=== PATIENT | female | born 1945 | race Caucasian/White ===

== ENCOUNTER 2018-01-05 12:08 | Outpatient (CLI) | payer MEDICARE ==
--- NOTE | 2018-01-05 13:44 | RAD ---
RADIOGRAPH CHEST 1 VIEW: Date: 01/05/18 Time: 1216 HOURS HISTORY: 72-year-old female, status post recent change of AICD generator. MRI clearance. COMPARISON: 12/07/15. FINDINGS: The previously demonstrated MRI-unsafe generator has been replaced by an MRI conditional [employer] ge nerator. The previously demonstrated two electrical leads traveling through the left subclavian vein with distal tips overlying the expected locations of the right atrial appendage and right ventricle, remain. A third lead has been added to this, presumably in the coronary sinus, and attached to the ne w generator. Again noted are the sternotomy wires. Again noted is the somewhat severe cardiomegaly. A gain noted are the diffusely prominent interstitial markings. No jenaro pulmonary alveolar edema. Ther e is a new finding of a prominent meniscus effacing the left lateral costophrenic angle. Right latera l costophrenic angle remains sharp. There are also mild streaky densities at the base of the left low er lobe. No pneumothorax. Multiple tiny surgical clips along the left cardiac border. Mild pulmonary vascular prominence. IMPRESSION: 1. Interval replacement of an MRI-unsafe automatic implantable cardioverter-defibrillator generator with an MRI-conditional one, with the addition of a third AICD lead. 2. The patient is cleared for MRI of the abdomen (with the [employer] Anthropological Linguist present to make all of the appropriate adjustments). 3. Cardiomegaly and borderline congestive changes. 4. Status post coronary artery bypass graft surgery is evidence for coronary atherosclerotic disease . 5. New finding of mild streaky pulmonary densities at the left lower lobe: subsegmental atelectasis vs. pneumonia; and probable new small left pleural effusion. LUL [] POS: [facility]
--- NOTE | 2018-01-05 14:20 | MRI ---
MRI ABDOMEN WITHOUT CONTRAST: Date: 01/05/18 HISTORY: Hepatomegaly. FINDINGS: The liver measures 18.0 cm in length and the spleen measures 9.0 cm in length. The hepatic veins are dilated. There is a gallstone. Spleen, pancreas, adrenal glands, and kidneys are grossly unremarkable given the limitation of absence of IV contrast. A small amount of free fluid is seen in the abdomen. The bone marrow signal is normal. There are dependent changes in the lung bases with tiny pleural ef fusions. There is edema in the subcutaneous fat. A tiny cyst is seen in the inferior aspect of the ri ght lobe of the liver. The heart appears enlarged. IMPRESSION: 1. Minimal ascites. 2. Cholelithiasis. 3. Dilated hepatic veins likely due to CHF. POS: [facility]
== END 2018-01-05 12:09 | disposition home or self-care (01) ==
LOC: MRI 12:08
PROVIDERS: ATTEND Internal Medicine Gastroenterology
DX: R16.0 Hepatomegaly, not elsewhere classified (principal); I51.7 Cardiomegaly; K80.20 Calculus of gallbladder without cholecystitis without obstruction; I86.8 Varicose veins of other specified sites
CPT/HCPCS: 71045; 74181; 82565

== ENCOUNTER 2018-03-01 11:37 | Inpatient (IN) | payer MEDICARE ==
[2018-03-01] MEDS ORDERED: DOPamine 400 MG/D5W 250 ML 250 ML IVPB SCH (12:45)
[2018-03-01] MEDS ORDERED: Potassium Chloride 20 MEQ TAB PO SCH (12:45)
[2018-03-01] MEDS ORDERED: DOBUTamine 500 mg/250 ml 500 MG in Premix Bag 1 BAG IVPB SCH ×2 (12:45→14:30)
[2018-03-01 13:31] LABS: ALT (SGPT) 14 U/L (8-55); AST (SGOT) 30 U/L (5-34); Albumin 3.8 g/dL (3.4-4.8); Alkaline Phosphatase 126 U/L (40-150); Anion Gap 25 mmol/L (10-20); BUN (Urea Nitrogen) 76 mg/dL (9.8-20.1); Bilirubin, Total 3.6 mg/dL (0.2-1.2); Calc. Creatinine Clearance 0 mL/min (70-130); Calcium 8.9 mg/dL (7.8-10.44); Carbon Dioxide 19 mmol/L (23-31); Chloride 89 mmol/L (98-107); Estimated GFR-MDRD 19; Globulin 3.9 g/dL (2.4-3.5); Glucose 96 mg/dL (83-110); Protein, Total 7.7 g/dL (6.0-8.3); Sodium 130 mmol/L (136-145)
[2018-03-01 13:42] LABS: Potassium 2.7 mmol/L (3.5-5.1)
[2018-03-01 14:16] LABS: #Lymphocytes 1.2 thou/uL (1.20-3.40); #Monocytes 0.9 thou/uL (0.11-0.59); #Neutrophils 4.8 thou/uL (1.40-6.50); %Basophils 0.2 % (0.0-1.0); %Eosinophils 0.3 % (0.0-10.0); %Lymphocytes 17.4 % (21.0-51.0); %Monocytes 13.1 % (0.0-10.0); Anisocytosis SLIGHT = 6-15 cells (100X) (0-5/hpf); Hemoglobin 12.3 g/dL (12.0-16.0); MDiff Complete? YES; Mean Corpuscular HGB CONC 33.5 g/dL (32.0-36.0); Mean Corpuscular Hemoglobin 30.2 pg (27.0-31.0); Mean Corpuscular Volume 90.2 fl (81.0-99.0); PLT Morphology Comment Appears Adequate; Platelet Count 151 thou/uL (130-400); Polychromasia SLIGHT = 2-3 cells (100X) (0-2/hpf); RBC Distribution Width 19.2 % (11.5-14.5); Red Blood Cell (RBC) Count 4.08 mill/uL (4.20-5.40); Tear Drops SLIGHT = 2-5 cells (100X) (0-1/hpf)
[2018-03-01] MEDS: DOPamine 400 MG/D5W 250 ML 250 ML IVPB SCH (14:40)
--- NOTE | 2018-03-01 14:49 | RAD ---
TWO VIEWS CHEST: HISTORY: Shortness of breath. Heart failure. COMPARISON: 12/07/15. FINDINGS: Cardiomegaly. Evidence of bilateral effusions, larger on the left. Left basilar atelectasis and/or infiltrate. Mild vascular engorgement. Pacemaker/AICD leads are unchanged. Postop sternotomy juarez es again noted. Aortic calcification again noted. IMPRESSION: Cardiomegaly. Small bilateral effusions and left basilar atelectasis and/or infiltrate. POS: [facility]
[2018-03-01] MEDS ORDERED: DOBUTAMINE IN DEXTROSE 5 % 250 MG in Premix Bag 1 BAG IV SCH ×2 (15:00)
[2018-03-01] MEDS: Furosemide 100 MG/10 ML VIAL SLOW IVP SCH (20:35)
[2018-03-01] MEDS: tiZANidine HCl 4 MG TAB PO SCH (20:35)
[2018-03-02 05:43] LABS: Anion Gap 20 mmol/L (10-20); BUN (Urea Nitrogen) 71 mg/dL (9.8-20.1); Calc. Creatinine Clearance 26 mL/min (70-130); Calcium 8.3 mg/dL (7.8-10.44); Carbon Dioxide 21 mmol/L (23-31); Chloride 92 mmol/L (98-107); Estimated GFR-MDRD 22; Glucose 92 mg/dL (83-110); Sodium 130 mmol/L (136-145)
[2018-03-02] MEDS: Levothyroxine Sodium 75 MCG TAB PO SCH (05:48)
[2018-03-02 05:49] LABS: Potassium 2.6 mmol/L (3.5-5.1)
[2018-03-02] MEDS ORDERED: Potassium Chloride 20 MEQ TAB PO SCH (08:00)
[2018-03-02] MEDS: Aspirin 81 mg Enteric Coated Tablet PO SCH (08:55)
[2018-03-02] MEDS: tiZANidine HCl 4 MG TAB PO SCH ×2 (08:56→21:06)
[2018-03-02] MEDS: Enoxaparin Sodium 40 MG/0.4 ML SYRINGE SC SCH (08:56)
[2018-03-02] MEDS: Polyethylene Glycol 3350 17 GM Packet PO SCH (08:56)
[2018-03-02] MEDS: Furosemide 100 MG/10 ML VIAL SLOW IVP SCH ×2 (09:03→21:06)
--- NOTE | 2018-03-02 14:28 | HP ---
HISTORY: Eva Nelson is a 72-year-old white female who was evaluated in August 2005 for exertional dyspnea. She had no chest pain. She underwent catheterization and was found to have severe left ventricular dysfunction with ejection fraction of 20% and 3-vessel coronary artery disease. She underwent CABG x4 with BATEMAN to the LAD, left radial artery to the posterior descending, saphenous vein graft to first obtuse marginal, and saphenous vein graft to the second obtuse marginal. At surgery, she had diffuse pericardial adhesions which precluded identification of any left ventricular scarring. Postoperative course was unremarkable, and she was discharged on postop day #3. In 01/2006, due to continued left ventricular dysfunction, she underwent electrophysiology study and was found to have inducible ventricular tachycardia. She underwent placement of a dual chamber ICD. In 11/2015, she was admitted with acute hypoxic respiratory failure secondary to pneumonia. In 06/2016, she was found to be in atrial tachycardia and was started on Eliquis, underwent transesophageal echo, which revealed [id number] mitral regurgitation, and no thrombus and she underwent electrical cardioversion. She had been on sotalol and ultimately that was stopped due to hypotension. In 2015, she underwent AV node ablation and upgrade to a biventricular ICD at [facility] in [place]. Also, I believe the atrial lead was changed. In 01/2017, she had iron deficiency anemia, underwent an EGD and colonoscopy. She was found to have gastric body gastritis, diverticulosis, and mild colitis. She has continued to be followed in the office. Over the last several months, she has developed problems with increasing edema and shortness of breath. She was changed to torsemide and since the last time she was seen, is up 7 pounds. At home, her systolics have been less than 100 despite the reduction in dose of the carvedilol. With continued increased dyspnea, OptiVol on her ICD at a level higher than could be measured and increasing creatinine, it was recommended she be admitted for more aggressive treatment of her heart failure with intravenous dobutamine and dopamine and intravenous diuretics. She agrees to proceed. She has not had any chest discomfort. PAST MEDICAL HISTORY: Hypertension, hypercholesterolemia, history of gastrointestinal bleeding, former smoker, GERD, hypothyroidism. OPERATIONS: Tonsillectomy, CABG, AICD placement, upgrade to biventricular AICD , D and C. MEDICATIONS: Alprazolam 0.25 mg b.i.d., Synthroid 75 mcg daily, CoQ10 100 mg daily, metolazone 5 mg p.r.n., MiraLax daily, aspirin 81 daily, potassium 10 mEq b.i.d., carvedilol 3.125 one-half tablet b.i.d., torsemide 100 mg 1 q.a.m. and 1/2 q.p.m. ALLERGIES: PENICILLIN. SOCIAL HISTORY: She smoked in the past. She does not drink. FAMILY HISTORY: Positive for coronary artery disease. REVIEW OF SYSTEMS: Twelve-point review of systems is otherwise unremarkable. PHYSICAL EXAMINATION: VITAL SIGNS: Blood pressure 116/63 and pulse is 70. HEENT: PERRL. NECK: Supple. CHEST: Clear. CARDIAC EXAMINATION: S1 and S2 normal, without any S3, S4, or murmurs. ABDOMEN: Normal bowel sounds, without tenderness or organomegaly. EXTREMITIES: Revealed 2-3+ edema to the knee. NEUROLOGIC: Grossly intact. SKIN: Warm and dry. LABORATORY DATA: Echocardiogram on 12/29/2017 in the office revealed severe left ventricular dysfunction with ejection fraction of 20%-25%, severe right ventricular dilatation, ICD wire in the right ventricle, moderate left atrial enlargement, severe right atrial enlargement, [id number] mitral regurgitation, mitral annular calcification, severe tricuspid regurgitation, aortic valvular sclerosis, and mild pulmonic insufficiency. Hemoglobin 12.3, hematocrit 36.8, white count 7000, platelets 151,000. Sodium 130, potassium 2.7 , chloride 89, BUN 76, creatinine 2.49. One month ago, her creatinine was 1.32. BNP 6827.3. IMPRESSION: 1. Severe acute on chronic systolic heart failure. 2. Ischemic cardiomyopathy. 3. Status post coronary artery bypass graft x4. 4. Biventricular implantable cardioverter defibrillator. 5. History of atrial tachycardia and atrial arrhythmias with history of AV node ablation. 6. Hypertension. 7. Hyperlipidemia. 8. Former smoker. 9. Hypothyroidism. PLAN: The patient will be admitted and will be started on intravenous dopamine and dobutamine and intravenous diuretics. Potassium will be replaced. Certainly, her long-term prognosis is poor. Her ICD will also be interrogated. She has a very wide paced QRS pattern and attempts will be made to try to narrow this. [facility]
[2018-03-03] MEDS: Levothyroxine Sodium 75 MCG TAB PO SCH (06:05)
[2018-03-03] MEDS: DOPamine 400 MG/D5W 250 ML 250 ML IVPB SCH ×2 (06:08→09:16)
[2018-03-03 06:10] LABS: Anion Gap 14 mmol/L (10-20); BUN (Urea Nitrogen) 71 mg/dL (9.8-20.1); Calc. Creatinine Clearance 25 mL/min (70-130); Calcium 8.6 mg/dL (7.8-10.44); Carbon Dioxide 30 mmol/L (23-31); Chloride 91 mmol/L (98-107); Estimated GFR-MDRD 20; Glucose 111 mg/dL (83-110); Sodium 132 mmol/L (136-145)
[2018-03-03 06:19] LABS: Potassium 2.7 mmol/L (3.5-5.1)
[2018-03-03] MEDS ORDERED: DOBUTamine 500 mg/250 ml 500 MG in Premix Bag 1 BAG IVPB SCH (08:18)
[2018-03-03] MEDS ORDERED: Potassium Chloride 20 MEQ TAB PO SCH ×2 (08:30→17:00)
[2018-03-03] MEDS: Polyethylene Glycol 3350 17 GM Packet PO SCH (09:05)
[2018-03-03] MEDS: Furosemide 100 MG/10 ML VIAL SLOW IVP SCH ×2 (09:06→21:24)
[2018-03-03] MEDS: Aspirin 81 mg Enteric Coated Tablet PO SCH (09:06)
[2018-03-03] MEDS: tiZANidine HCl 4 MG TAB PO SCH ×2 (09:06→21:25)
[2018-03-03] MEDS: Enoxaparin Sodium 40 MG/0.4 ML SYRINGE SC SCH (09:06)
[2018-03-03] MEDS ORDERED: Spironolactone 25 MG TAB PO SCH (11:00)
[2018-03-03] MEDS: SODIUM CHLORIDE 0.9% IVPB SCH (20:52)
[2018-03-03] MEDS: DOBUTAMINE IVPB SCH (20:52)
[2018-03-03] MEDS: Acetaminophen 325 MG TAB PO PRN (21:25)
[2018-03-04] MEDS: DOPamine 400 MG/D5W 250 ML 250 ML IVPB SCH ×2 (02:51→21:18)
[2018-03-04] MEDS: Levothyroxine Sodium 75 MCG TAB PO SCH (05:57)
[2018-03-04 06:51] LABS: Anion Gap 21 mmol/L (10-20); BUN (Urea Nitrogen) 69 mg/dL (9.8-20.1); Calc. Creatinine Clearance 25 mL/min (70-130); Calcium 8.7 mg/dL (7.8-10.44); Carbon Dioxide 18 mmol/L (23-31); Chloride 96 mmol/L (98-107); Estimated GFR-MDRD 21; Glucose 108 mg/dL (83-110); Potassium 5.1 mmol/L (3.5-5.1); Sodium 130 mmol/L (136-145)
[2018-03-04] MEDS ORDERED: Metolazone 5 MG TAB PO SCH (07:30)
[2018-03-04] MEDS: Aspirin 81 mg Enteric Coated Tablet PO SCH (07:55)
[2018-03-04] MEDS: Enoxaparin Sodium 30 MG/0.3 ML SYRINGE SC SCH (07:55)
[2018-03-04] MEDS: tiZANidine HCl 4 MG TAB PO SCH ×2 (07:56→21:19)
[2018-03-04] MEDS: Polyethylene Glycol 3350 17 GM Packet PO SCH (07:56)
[2018-03-04] MEDS: Spironolactone 25 MG TAB PO SCH (07:57)
[2018-03-04] MEDS: Furosemide 100 MG/10 ML VIAL SLOW IVP SCH ×2 (07:58→21:24)
[2018-03-04 13:57] VITALS: BMI 27.2
[2018-03-04] MEDS: Acetaminophen 325 MG TAB PO PRN ×2 (15:36→21:19)
[2018-03-04] MEDS ORDERED: diphenhydrAMINE 25 MG CAP PO SCH (21:00)
[2018-03-04] MEDS: SODIUM CHLORIDE 0.9% IVPB SCH (21:18)
[2018-03-04] MEDS: DOBUTAMINE IVPB SCH (21:18)
[2018-03-05] MEDS: ALPRAZolam 0.25 MG TAB PO PRN ×2 (03:15→15:16)
[2018-03-05] MEDS: Levothyroxine Sodium 75 MCG TAB PO SCH (05:21)
[2018-03-05 05:26] LABS: Anion Gap 16 mmol/L (10-20); BUN (Urea Nitrogen) 72 mg/dL (9.8-20.1); Calc. Creatinine Clearance 25 mL/min (70-130); Calcium 8.2 mg/dL (7.8-10.44); Carbon Dioxide 24 mmol/L (23-31); Chloride 93 mmol/L (98-107); Estimated GFR-MDRD 21; Glucose 96 mg/dL (83-110); Potassium 4.2 mmol/L (3.5-5.1); Sodium 129 mmol/L (136-145)
[2018-03-05] MEDS ORDERED: Metolazone 5 MG TAB PO SCH (08:15)
[2018-03-05] MEDS: Furosemide 100 MG/10 ML VIAL SLOW IVP SCH ×2 (08:27→21:18)
[2018-03-05] MEDS: tiZANidine HCl 4 MG TAB PO SCH ×2 (08:27→21:18)
[2018-03-05] MEDS: Spironolactone 25 MG TAB PO SCH (08:27)
[2018-03-05] MEDS: Enoxaparin Sodium 30 MG/0.3 ML SYRINGE SC SCH (08:28)
[2018-03-05] MEDS: Aspirin 81 mg Enteric Coated Tablet PO SCH (08:28)
[2018-03-05] MEDS: Polyethylene Glycol 3350 17 GM Packet PO SCH (08:29)
[2018-03-05] MEDS: DOPamine 400 MG/D5W 250 ML 250 ML IVPB SCH (16:06)
[2018-03-05] MEDS: Acetaminophen 325 MG TAB PO PRN (21:18)
[2018-03-05] MEDS: SODIUM CHLORIDE 0.9% IVPB SCH (23:05)
[2018-03-05] MEDS: DOBUTAMINE IVPB SCH (23:05)
[2018-03-06] MEDS: ALPRAZolam 0.25 MG TAB PO PRN ×2 (02:48→15:46)
[2018-03-06] MEDS: Levothyroxine Sodium 75 MCG TAB PO SCH (05:23)
[2018-03-06 05:38] LABS: Anion Gap 15 mmol/L (10-20); BUN (Urea Nitrogen) 77 mg/dL (9.8-20.1); Calc. Creatinine Clearance 24 mL/min (70-130); Calcium 8.6 mg/dL (7.8-10.44); Carbon Dioxide 30 mmol/L (23-31); Chloride 90 mmol/L (98-107); Estimated GFR-MDRD 20; Glucose 105 mg/dL (83-110); Potassium 3.6 mmol/L (3.5-5.1); Sodium 131 mmol/L (136-145)
[2018-03-06] MEDS: Enoxaparin Sodium 30 MG/0.3 ML SYRINGE SC SCH (09:15)
[2018-03-06] MEDS: Aspirin 81 mg Enteric Coated Tablet PO SCH (09:15)
[2018-03-06] MEDS: Spironolactone 25 MG TAB PO SCH (09:15)
[2018-03-06] MEDS: Polyethylene Glycol 3350 17 GM Packet PO SCH (09:16)
[2018-03-06] MEDS: Furosemide 100 MG/10 ML VIAL SLOW IVP SCH ×2 (09:16→20:26)
[2018-03-06] MEDS: tiZANidine HCl 4 MG TAB PO SCH ×2 (09:17→20:26)
[2018-03-06] MEDS: DOPamine 400 MG/D5W 250 ML 250 ML IVPB SCH (09:18)
--- NOTE | 2018-03-06 15:08 | PDOC.CTH ---
<Charley Adair - Last Filed: 03/06/18 15:05> Cardiology Progress Note - Subjective The pt seen and examined. No overnight events. No cardiac complaints. She complains of Lt nasal bleeding. She stated she will be tx to [place] for LVAD placement; however, due to enlarged liver, she might not be a good candidate. - Objective Vital Signs Temp Pulse Resp BP Pulse Ox 03/06/18 12:20 98.9 F 72 16 106/61 94 L 03/06/18 08:00 98.4 F 72 20 102/62 95 03/06/18 07:25 98.4 F 72 20 95 03/06/18 04:00 98.5 F 80 20 108/57 L 95 Admit Weight 158 lb 6.4 oz Weight 162 lb 03/05/18 03/06/18 03/07/18 06:59 06:59 06:59 Intake Total 1465 1798 Output Total 650 1425 Balance 815 373 - Physical Examination General/Neuro: alert & oriented x3 Neck: no JVD present Lungs: CTA (dinimished at bases) Heart: RRR Extremities: other: (No edema) - Telemetry Telemetry Rhythm: V paced 70s - Labs Result Diagrams: 03/01/18 13:00 03/06/18 05:13 - Assessment/Plan 1. Severe Acute on Chronic systolic HF - On Dobutamine and Dopamine 5mcg/kg/min ; VS is stable; Plan to Tx to [place] for possible LVAD placement. 2. Ischemic CMY with hx of BiV AICD placement - On Lasix 80mg IV BID and Spironolacotone 25mg daily; cont. to monitor 3. CAD with hx of CABG x4 in 2004 - stable with ASA 81mg daily; not on BBlocker or VERONIKA due to hypotensive and CKD. 4. HTN - stable 5. CKD - stable; possible renal consult? 6. Hypothyroidism - On thyroid medication 7. Hx of GI bleeding - check CBC tomorrow AM 8. Nosal bleeding - Holding Lovenox at this moment MAR reviewed Review of Systems - Review of Systems Constitutional: reports: weakness EENTM: reports: see HPI Respiratory: reports: no symptoms reported Cardiac (ROS): reports: no symptoms reported ABD/GI: reports: no symptoms reported : reports: no symptoms reported Musculoskeletal: reports: no symptoms reported Skin: reports: no symptoms reported <Chele Madsen - Last Filed: 03/07/18 00:15> Cardiology Progress Note - Objective Vital Signs Temp Pulse Resp BP Pulse Ox 03/06/18 20:00 98.9 F 70 20 92/59 L 95 03/06/18 16:54 98.9 F 75 17 106/59 L 93 L 03/06/18 12:20 98.9 F 72 16 106/61 94 L Admit Weight 158 lb 6.4 oz Weight 162 lb 03/05/18 03/06/18 03/07/18 06:59 06:59 06:59 Intake Total 1465 1798 600 Output Total 650 1425 1000 Balance 815 373 -400 - Labs Result Diagrams: 03/01/18 13:00 03/06/18 05:13 - Assessment/Plan Pt. seen and eval. by me. I agree with the A/P by the VIBRATING SCREEN OPERATOR. We discussed the pt. and plan.
--- NOTE | 2018-03-06 16:45 | PDOC.PN ---
- Subjective Encounter Start Date: 03/06/18 Encounter Start Time: 16:43 Pt seen for management of medical comorbidities, including hyponatremia. Denies chest pain, shas SOBOE, orthopnea. No fevers or chills. - Objective MAR Reviewed: Yes Vital Signs & Weight: Vital Signs (12 hours) Temp Pulse Resp BP Pulse Ox 03/06/18 12:20 98.9 F 72 16 106/61 94 L 03/06/18 08:00 98.4 F 72 20 102/62 95 03/06/18 07:25 98.4 F 72 20 95 Weight Admit Weight 158 lb 6.4 oz Weight 162 lb I&O: 03/05/18 03/06/18 03/07/18 06:59 06:59 06:59 Intake Total 1465 1798 Output Total 650 1425 Balance 815 373 Result Diagrams: 03/01/18 13:00 03/06/18 05:13 EKG Reviewed by me: Yes (Tele: electronic V-paced) Phys Exam - Physical Examination Constitutional: NAD HEENT: PERRLA, moist MMs, sclera anicteric, oral pharynx no lesions Neck: no nodes, supple, full ROM JVD Respiratory: no wheezing, no rhonchi Lukasz crackles Cardiovascular: RRR, no rub Gastrointestinal: soft, non-tender, positive bowel sounds distention Musculoskeletal: edema present Neurological: moves all 4 limbs Psychiatric: normal affect, A&O x 3 Dx/Plan (1) Hyponatremia Code(s): E87.1 - HYPO-OSMOLALITY AND HYPONATREMIA Status: Acute Comment: Appears to be asymptomatic. Monitor lytes. (2) CKD (chronic kidney disease) Code(s): N18.9 - CHRONIC KIDNEY DISEASE, UNSPECIFIED Status: Chronic Comment : GFR worse during this admission. Etiology unclear, ? due to CHF, ? ATN due to hypotension. Consult nephrology for further guidance. Pt is on dopamine and dobutamine drips. (3) Hypothyroidism Code(s): E03.9 - HYPOTHYROIDISM, UNSPECIFIED Status: Chronic Comment: continue synthroid (4) H/O: GI bleed Code(s): Z87.19 - PERSONAL HISTORY OF OTHER DISEASES OF THE DIGESTIVE SYSTEM Status: Chronic Comment: no recurrence (5) Epistaxis Code(s): R04.0 - EPISTAXIS Status: Resolved Comment: Pt is off of Lovenox (6) HTN (hypertension) Code(s): I10 - ESSENTIAL (PRIMARY) HYPERTENSION Status: Acute (7) CAD (coronary artery disease) Code(s): I25.10 - ATHSCL HEART DISEASE OF [place] CORONARY ARTERY W/O ANG PCTRS Status: Chronic - Plan * . Prognosis poor. Discussed code status. Pt is Full code. SDM is her . Review of Systems - Review of Systems Constitutional: negative: fever, chills, sweats, weakness, malaise Respiratory: Shortness of Breath, SOB with Excertion. negative: Cough, Dry, Hemoptysis, Pleuritic Pain, Sputum, Wheezing Cardiovascular: negative: chest pain, palpitations, orthopnea, paroxysmal nocturnal dyspnea, edema, light headedness - Medications/Allergies Allergies/Adverse Reactions: Allergies Allergy/AdvReac Type Severity Reaction Status Date / Time Penicillins Allergy Verified 03/01/18 12:59 Medications: Current Medications Acetaminophen (Tylenol) 650 mg PO Q4H PRN PRN Reason: Pain Last Admin: 03/05/18 21:18 Dose: 650 mg Alprazolam (Xanax) 0.25 mg PO BIDPRN PRN PRN Reason: Anxiety Last Admin: 03/06/18 15:46 Dose: 0.25 mg Aspirin (Ecotrin) 81 mg PO DAILY [facility] Last Admin: 03/06/18 09:15 Dose: 81 mg Enoxaparin Sodium (Lovenox) 30 mg SC 0900 [facility] Last Admin: 03/06/18 09:15 Dose: 30 mg Furosemide (Lasix) 80 mg SLOW IVP BID [facility] Last Admin: 03/06/18 09:16 Dose: 80 mg Dopamine HCl/Dextrose (Dopamine/D5w) 250 mls @ 13.472 mls/hr IVPB INF [facility]; 5 MCG/KG/MIN PRN Reason: Protocol Last Admin: 03/06/18 09:18 Dose: 250 mls Dobutamine HCl 500 mg/ Sodium (Chloride) 290 mls @ 12.5 mls/hr IVPB INF [facility] PRN Reason: 5 MCG/KG/MIN Last Admin: 03/05/18 23:05 Dose: 290 mls Levothyroxine Sodium (Synthroid) 75 mcg PO 0600 [facility] Last Admin: 03/06/18 05:23 Dose: 75 mcg Polyethylene Glycol (Miralax) 17 gm PO DAILY [facility] Last Admin: 03/06/18 09:16 Dose: Not Given Sodium Chloride (Flush - Normal Saline) 10 ml IVF Q12HR [facility] Last Admin: 03/06/18 09:16 Dose: 10 ml Sodium Chloride (Flush - Normal Saline) 10 ml IVF PRN PRN PRN Reason: Saline Flush Last Admin: 03/04/18 07:58 Dose: 10 ml Spironolactone (Aldactone) 25 mg PO QAM-WM [facility] Last Admin: 03/06/18 09:15 Dose: 25 mg Tizanidine HCl (Zanaflex) 4 mg PO BID [facility] Last Admin: 03/06/18 09:17 Dose: 4 mg
[2018-03-06] MEDS: Acetaminophen 325 MG TAB PO PRN (21:02)
--- NOTE | 2018-03-07 01:05 | CON ---
DATE OF CONSULTATION: 03/06/2018 NEPHROLOGY CONSULT CONSULTING PHYSICIAN: Dr. Andrade. REASON FOR CONSULTATION: Acute kidney injury on chronic kidney disease, stage 4. REASON FOR ADMISSION: Shortness of breath. HISTORY OF PRESENT ILLNESS: This is a 72-year-old female with history of CHF, hypertension, hyperlip idemia, former smoker, CKD, came to the hospital with shortness of breath and she evaluated and being treated for congestive heart failure. Patient probably being transferred to [place] next week for po ssible LVAD procedure or placement. Patient is mildly short of breath this morning. No chest pain, no nausea, vomiting, no fever or chills. No skin rash reported. Nephrology is consulted for chronic kidney disease. Patient was found to have elevated creatinine. Her creatinine on admission was 2.4 9, but last creatinine was almost a year back was 1.32. Most likely she does have chronic kidney sta ge 4, most likely from cardiorenal syndrome. PAST MEDICAL HISTORY: Positive for hypertension, hyperlipidemia, GI bleed, former smoker, GERD, CKD, hypothyroidism. PAST SURGICAL HISTORY: Tonsillectomy, CABG, AICD placement. HOME MEDICATIONS: Include alprazolam, Synthroid, Coenzyme Q10, metolazone, MiraLax, potassium, carve dilol, torsemide. ALLERGIES: PENICILLIN. SOCIAL HISTORY: She smoked in the past. No alcohol, illicit drug abuse. FAMILY HISTORY: Positive for heart disease. REVIEW OF SYSTEMS: The following complete review of systems was negative, unless otherwise mentioned in the HPI or below: Constitutional: Weight loss or gain, ability to conduct usual activities. Sk in: Rash, itching. Eyes: Double vision, pain. ENT/Mouth: Nose bleeding, neck stiffness, pain, te nderness. Cardiovascular: Palpitations, dyspnea on exertion, orthopnea. Respiratory: Shortness of breath, wheezing, cough, hemoptysis, fever, or night sweats. Gastrointestinal: Poor appetite, abdo david pain, heartburn, nausea, vomiting, constipation, or diarrhea. Genitourinary: Urgency, frequen cy, dysuria, nocturia. Musculoskeletal: Pain, swelling. Neurologic/Psychiatric: Anxiety, depressi on. Allergy/Immunologic: Skin rash, bleeding tendency. PHYSICAL EXAMINATION: GENERAL: This is a well-built elderly female in no apparent distress. VITAL SIGNS: Temperature 98.9, pulse 75, respirations 21, blood pressure 106/59. HEENT: Atraumatic, normocephalic. Oral mucosa is moist. NECK: Supple. HEART: S1, S2 heard. Rate and rhythm regular. RESPIRATORY: Clear. GI: Abdomen is soft. EXTREMITIES: 2+ edema. DERMATOLOGIC: No skin rash. NEUROLOGIC: Alert, awake. PSYCHIATRIC: Mood and affect normal. LABORATORY DATA: Potassium is 3.6, BUN is 77, creatinine is 2.4. Hemoglobin is 12.2. ASSESSMENT AND PLAN: 1. Acute kidney injury on chronic kidney stage 4, most likely from cardiorenal syndrome. Agree with current management. Follow with Cardiology. Avoid nephrotoxins. We will recommend to hold VERONIKA inh ibitor if tolerated. Continue on dobutamine and on Lasix also. Currently with spironolactone. 2. Continue close monitor of electrolytes and renal function. 3. Hypokalemia, replace. 4. Hyponatremia, most likely from fluid overload, limit fluid intake. 5. Hypertension, mostly stable. 6. Elevated BNP with fluid overload. 7. Edema. Plan is to monitor renal function closely. Thank you for the consult. Avoid nephrotoxins. We will follow.
[2018-03-07] MEDS: ALPRAZolam 0.25 MG TAB PO PRN ×2 (04:01→15:16)
[2018-03-07] MEDS: DOPamine 400 MG/D5W 250 ML 250 ML IVPB SCH (04:24)
[2018-03-07] MEDS: DOBUTAMINE IVPB SCH (04:35)
[2018-03-07] MEDS: SODIUM CHLORIDE 0.9% IVPB SCH (04:35)
[2018-03-07 05:16] LABS: ALT (SGPT) 12 U/L (8-55); AST (SGOT) 17 U/L (5-34); Albumin 3.1 g/dL (3.4-4.8); Alkaline Phosphatase 112 U/L (40-150); Anion Gap 14 mmol/L (10-20); BUN (Urea Nitrogen) 74 mg/dL (9.8-20.1); Bilirubin, Total 2.6 mg/dL (0.2-1.2); Calc. Creatinine Clearance 27 mL/min (70-130); Calcium 8.8 mg/dL (7.8-10.44); Carbon Dioxide 31 mmol/L (23-31); Chloride 89 mmol/L (98-107); Estimated GFR-MDRD 22; Globulin 3.4 g/dL (2.4-3.5); Glucose 100 mg/dL (83-110); Potassium 3.6 mmol/L (3.5-5.1); Protein, Total 6.5 g/dL (6.0-8.3); Sodium 130 mmol/L (136-145)
[2018-03-07 05:44] LABS: #Eosinphils 0.2 thou/uL (0.0-0.7); #Lymphocytes 0.7 thou/uL (1.20-3.40); #Monocytes 1.1 thou/uL (0.11-0.59); #Neutrophils 5.8 thou/uL (1.40-6.50); %Basophils 0.2 % (0.0-1.0); %Eosinophils 2.1 % (0.0-10.0); %Lymphocytes 8.9 % (21.0-51.0); %Monocytes 14.1 % (0.0-10.0); %Neutrophils 74.6 % (42.0-75.0); Bite Cells SLIGHT = 2-5 cells (100X) (0-1/hpf); MDiff Complete? YES; Mean Corpuscular HGB CONC 32.9 g/dL (32.0-36.0); Mean Corpuscular Hemoglobin 29.7 pg (27.0-31.0); Mean Corpuscular Volume 90.3 fl (81.0-99.0); Mean Platelet Volume 10.2 fL (7.4-10.4); PLT Morphology Comment Appears Decreased; Platelet Count 119 thou/uL (130-400); RBC Distribution Width 18.9 % (11.5-14.5); White Blood Cell (WBC) Count 7.8 thou/uL (4.8-10.8)
[2018-03-07] MEDS: Furosemide 100 MG/10 ML VIAL SLOW IVP SCH ×2 (06:28→14:24)
[2018-03-07] MEDS: Levothyroxine Sodium 75 MCG TAB PO SCH (06:28)
[2018-03-07] MEDS: Spironolactone 25 MG TAB PO SCH (08:36)
[2018-03-07] MEDS: tiZANidine HCl 4 MG TAB PO SCH ×2 (08:36→20:35)
[2018-03-07] MEDS: Polyethylene Glycol 3350 17 GM Packet PO SCH ×2 (08:36→20:36)
[2018-03-07] MEDS: Aspirin 81 mg Enteric Coated Tablet PO SCH (08:36)
[2018-03-07] MEDS: Enoxaparin Sodium 30 MG/0.3 ML SYRINGE SC SCH (08:42)
--- NOTE | 2018-03-07 12:48 | PDOC.PN ---
- Subjective Encounter Start Date: 03/07/18 Encounter Start Time: 08:00 Pt seen for followup re: hyponatremia. Denies chest pain. Feels sleepy. No fevers or chills. No nausea or vomiting. - Objective MAR Reviewed: Yes Vital Signs & Weight: Vital Signs (12 hours) Temp Pulse Resp BP Pulse Ox 03/07/18 11:48 98.2 F 69 18 104/59 L 92 L 03/07/18 07:01 98.2 F 72 16 105/60 97 03/07/18 04:00 97.8 F 73 15 90/60 95 Weight Admit Weight 158 lb 6.4 oz Weight 167 lb 9.6 oz I&O: 03/06/18 03/07/18 03/08/18 06:59 06:59 06:59 Intake Total 1798 1539 Output Total 1425 2600 Balance 373 -1061 Result Diagrams: 03/07/18 04:49 03/07/18 04:49 EKG Reviewed by me: Yes (Tele: electronic V-paced) Phys Exam - Physical Examination Constitutional: NAD HEENT: moist MMs Neck: supple Respiratory: clear to auscultation bilateral Cardiovascular: RRR Gastrointestinal: soft Musculoskeletal: edema present Neurological: moves all 4 limbs Psychiatric: normal affect Dx/Plan (1) Hyponatremia Code(s): E87.1 - HYPO-OSMOLALITY AND HYPONATREMIA Status: Acute Comment: Stable (2) CKD (chronic kidney disease) Code(s): N18.9 - CHRONIC KIDNEY DISEASE, UNSPECIFIED Status: Chronic Comment : Appreciate nephrology service input, creatinine better today. (3) Hypothyroidism Code(s): E03.9 - HYPOTHYROIDISM, UNSPECIFIED Status: Chronic Comment: continue synthroid (4) H/O: GI bleed Code(s): Z87.19 - PERSONAL HISTORY OF OTHER DISEASES OF THE DIGESTIVE SYSTEM Status: Chronic Comment: pt denies recurrence (5) Epistaxis Code(s): R04.0 - EPISTAXIS Status: Resolved Comment: no Lovenox at this time (6) HTN (hypertension) Code(s): I10 - ESSENTIAL (PRIMARY) HYPERTENSION Status: Acute (7) CAD (coronary artery disease) Code(s): I25.10 - ATHSCL HEART DISEASE OF [place] CORONARY ARTERY W/O ANG PCTRS Status: Chronic - Plan * . Review of Systems - Review of Systems Constitutional: weakness. negative: fever, chills, sweats, malaise Respiratory: Shortness of Breath, SOB with Excertion. negative: Cough, Dry, Hemoptysis, Pleuritic Pain, Sputum, Wheezing Cardiovascular: orthopnea. negative: chest pain, palpitations, paroxysmal nocturnal dyspnea, edema, light headedness - Medications/Allergies Allergies/Adverse Reactions: Allergies Allergy/AdvReac Type Severity Reaction Status Date / Time Penicillins Allergy Verified 03/01/18 12:59 Medications: Current Medications Acetaminophen (Tylenol) 650 mg PO Q4H PRN PRN Reason: Pain Last Admin: 03/06/18 21:02 Dose: 650 mg Alprazolam (Xanax) 0.25 mg PO BIDPRN PRN PRN Reason: Anxiety Last Admin: 03/07/18 04:01 Dose: 0.25 mg Aspirin (Ecotrin) 81 mg PO DAILY [facility] Last Admin: 03/07/18 08:36 Dose: 81 mg Enoxaparin Sodium (Lovenox) 30 mg SC 0900 [facility] Last Admin: 03/07/18 08:42 Dose: Not Given Furosemide (Lasix) 80 mg SLOW IVP 0600,1400 [facility] Last Admin: 03/07/18 06:28 Dose: 80 mg Dopamine HCl/Dextrose (Dopamine/D5w) 250 mls @ 13.472 mls/hr IVPB INF [facility]; 5 MCG/KG/MIN PRN Reason: Protocol Last Admin: 03/07/18 04:24 Dose: 250 mls Dobutamine HCl 500 mg/ Sodium (Chloride) 290 mls @ 12.5 mls/hr IVPB INF [facility] PRN Reason: 5 MCG/KG/MIN Last Admin: 03/07/18 04:35 Dose: 290 mls Levothyroxine Sodium (Synthroid) 75 mcg PO 0600 [facility] Last Admin: 03/07/18 06:28 Dose: 75 mcg Polyethylene Glycol (Miralax) 17 gm PO DAILY [facility] Last Admin: 03/07/18 08:36 Dose: Not Given Sodium Chloride (Flush - Normal Saline) 10 ml IVF Q12HR [facility] Last Admin: 03/07/18 08:43 Dose: Not Given Sodium Chloride (Flush - Normal Saline) 10 ml IVF PRN PRN PRN Reason: Saline Flush Last Admin: 03/07/18 06:28 Dose: 10 ml Spironolactone (Aldactone) 25 mg PO QAM[facility] Last Admin: 03/07/18 08:36 Dose: 25 mg Tizanidine HCl (Zanaflex) 4 mg PO BID [facility] Last Admin: 03/07/18 08:36 Dose: 4 mg
--- NOTE | 2018-03-07 15:03 | PRG ---
DATE OF SERVICE: 03/07/2018 SUBJECTIVE: Patient was seen and examined at bedside and overnight events noted. Patient denies any shortness of breath or chest pain or palpitation. No history of nausea or vomiting or diarrhea or f ever or chills or cramps. OBJECTIVE: GENERAL: This is an elderly female in no apparent distress. VITAL SIGNS: Temperature is 98.2, pulse 70, respiratory rate 16 and blood pressure 105/60. HEENT: Atraumatic, normocephalic. Oral mucosa is moist. NECK: Supple. CARDIOVASCULAR: S1, S2 heard. Rate and rhythm regular. RESPIRATORY: Clear to auscultation. GASTROINTESTINAL: Abdomen is soft. MUSCULOSKELETAL: No tenderness. No edema. DERMATOLOGIC: No skin rash. NEUROLOGIC: Alert and awake and oriented x3. No focal neurologic deficits. Moving all the extremit ies. PSYCHIATRIC: Mood and affect normal. LABORATORY DATA: Potassium is 3.6, BUN is 74 and creatinine is 2.1. ASSESSMENT AND PLAN: 1. Acute kidney injury, chronic kidney disease stage 4 with fluctuations in creatinine labs. 2. Cardiorenal syndrome. It seems like slightly improved on her creatinine. Continue on inotropes and diuretics. Follow up with Cardiology for further plan. 3. Hypokalemia, replace. 4. Hyponatremia, limit fluid intake. 5. Edema. Overall, renal function is stable. Hold VERONIKA inhibitors. At this point okay with diuretics and inotr opes. We will follow.
--- NOTE | 2018-03-07 17:48 | PDOC.CTH ---
<Charley Adair - Last Filed: 03/07/18 17:47> Cardiology Progress Note - Subjective The pt seen and examined. No overnight events. No cardiac complaints. She complains of coldness and needs the room very warm. She would like to know the schedule of tx to [facility] on 03/08/18. No more nasal bleeding. - Objective Vital Signs Temp Pulse Resp BP Pulse Ox 03/07/18 15:18 98 F 76 18 103/60 96 03/07/18 11:48 98.2 F 69 18 104/59 L 92 L 03/07/18 07:01 98.2 F 72 16 105/60 97 Admit Weight 158 lb 6.4 oz Weight 167 lb 9.6 oz 03/06/18 03/07/18 03/08/18 06:59 06:59 06:59 Intake Total 1798 1539 Output Total 1425 2600 Balance 373 -1061 - Physical Examination General/Neuro: alert & oriented x3 Neck: no JVD present Lungs: CTA (diminished at bases) Heart: RRR Abdomen: soft Extremities: other: (2+ pitting edemas) - Telemetry Telemetry Rhythm: V paced - Labs Result Diagrams: 03/07/18 04:49 03/07/18 04:49 - Assessment/Plan 1. Severe Acute on Chronic systolic HF - On Dobutamine and Dopamine 5mcg/kg/min ; VS is stable; Plan to Tx to [facility] for possible LVAD placement. 2. Ischemic CMY with hx of BiV AICD placement - On Lasix 80mg IV BID and Spironolacotone 25mg daily; cont. to monitor 3. CAD with hx of CABG x4 in 2004 - stable with ASA 81mg daily; not on BBlocker or VERONIKA due to hypotensive and CKD. 4. HTN - stable 5. RUBY on CKD stage 4 - managed by clinical laboratory technologist 6. Hypothyroidism - On thyroid medication 7. Hx of GI bleeding - check CBC tomorrow AM 8. Nosal bleeding - Holding Lovenox at this moment MAR reviewed Review of Systems - Review of Systems Constitutional: reports: see HPI EENTM: reports: no symptoms reported Respiratory: reports: no symptoms reported Cardiac (ROS): reports: no symptoms reported ABD/GI: reports: no symptoms reported : reports: no symptoms reported Musculoskeletal: reports: no symptoms reported <Chele Madsen - Last Filed: 03/07/18 19:31> Cardiology Progress Note - Objective Vital Signs Temp Pulse Resp BP Pulse Ox 03/07/18 15:18 98 F 76 18 103/60 96 03/07/18 11:48 98.2 F 69 18 104/59 L 92 L Admit Weight 158 lb 6.4 oz Weight 167 lb 9.6 oz 03/06/18 03/07/18 03/08/18 06:59 06:59 06:59 Intake Total 1798 1539 600 Output Total 1425 2600 1450 Balance 373 -1061 -850 - Labs Result Diagrams: 03/07/18 04:49 03/07/18 04:49 - Assessment/Plan Pt. seen and eval. by me. I agree with the A/P by the MEDICAL INVESTIGATOR. We discussed the pt. and plan.
[2018-03-07] MEDS: Acetaminophen 325 MG TAB PO PRN (20:35)
[2018-03-08] MEDS: DOPamine 400 MG/D5W 250 ML 250 ML IVPB SCH ×2 (00:07→11:35)
[2018-03-08] MEDS: ALPRAZolam 0.25 MG TAB PO PRN (01:00)
[2018-03-08 05:17] LABS: Anion Gap 14 mmol/L (10-20); BUN (Urea Nitrogen) 73 mg/dL (9.8-20.1); Calc. Creatinine Clearance 30 mL/min (70-130); Calcium 8.8 mg/dL (7.8-10.44); Carbon Dioxide 30 mmol/L (23-31); Chloride 91 mmol/L (98-107); Estimated GFR-MDRD 24; Glucose 103 mg/dL (83-110); Potassium 3.7 mmol/L (3.5-5.1); Sodium 131 mmol/L (136-145)
[2018-03-08] MEDS ORDERED: Ondansetron HCl/PF 4 MG/2 ML Vial IVP PRN (05:50)
[2018-03-08] MEDS: Levothyroxine Sodium 75 MCG TAB PO SCH (06:12)
[2018-03-08] MEDS: Furosemide 100 MG/10 ML VIAL SLOW IVP SCH (06:12)
[2018-03-08] MEDS: Acetaminophen 325 MG TAB PO PRN (06:24)
[2018-03-08] MEDS: tiZANidine HCl 4 MG TAB PO SCH (08:49)
[2018-03-08] MEDS: Spironolactone 25 MG TAB PO SCH (08:49)
[2018-03-08] MEDS: Aspirin 81 mg Enteric Coated Tablet PO SCH (08:50)
[2018-03-08] MEDS: Polyethylene Glycol 3350 17 GM Packet PO SCH (08:52)
[2018-03-08] MEDS: Enoxaparin Sodium 30 MG/0.3 ML SYRINGE SC SCH (08:52)
[2018-03-08] MEDS: DOBUTAMINE IVPB SCH (10:49)
[2018-03-08] MEDS: SODIUM CHLORIDE 0.9% IVPB SCH (10:49)
[2018-03-08 12:04] VITALS: BP 101/57; TEMP 96.9
--- NOTE | 2018-03-08 12:46 | PDOC.PN ---
- Subjective Encounter Start Date: 03/08/18 Encounter Start Time: 08:00 Pt seen for followup re: hyponatremia. No chest pain or fevers. - Objective MAR Reviewed: Yes Vital Signs & Weight: Vital Signs (12 hours) Temp Pulse Resp BP Pulse Ox 03/08/18 12:00 96.9 F L 69 20 101/57 L 03/08/18 07:20 98.5 F 79 20 98/53 L 91 L 03/08/18 05:38 92 L 03/08/18 04:00 98.5 F 75 20 98/57 L 92 L Weight Admit Weight 158 lb 6.4 oz Weight 165 lb 8 oz I&O: 03/07/18 03/08/18 03/09/18 06:59 06:59 06:59 Intake Total 1539 1287 Output Total 2600 1900 Balance -1061 -613 Result Diagrams: 03/07/18 04:49 03/08/18 04:44 EKG Reviewed by me: Yes (Tele: V-paced) Phys Exam - Physical Examination Constitutional: NAD HEENT: moist MMs Neck: supple Lukasz crackles Cardiovascular: RRR Gastrointestinal: soft Musculoskeletal: edema present Neurological: moves all 4 limbs Psychiatric: normal affect Dx/Plan (1) Hyponatremia Code(s): E87.1 - HYPO-OSMOLALITY AND HYPONATREMIA Status: Acute Comment: Asymptomatic, stable (2) CKD (chronic kidney disease) Code(s): N18.9 - CHRONIC KIDNEY DISEASE, UNSPECIFIED Status: Chronic Comment : creatinine improving (3) Hypothyroidism Code(s): E03.9 - HYPOTHYROIDISM, UNSPECIFIED Status: Chronic Comment: On synthroid (4) HTN (hypertension) Code(s): I10 - ESSENTIAL (PRIMARY) HYPERTENSION Status: Acute (5) CAD (coronary artery disease) Code(s): I25.10 - ATHSCL HEART DISEASE OF [place] CORONARY ARTERY W/O ANG PCTRS Status: Chronic - Plan * . Pt to be transfered to [facility] today, will sign off. Review of Systems - Review of Systems Constitutional: negative: fever, chills, sweats, weakness, malaise Respiratory: SOB with Excertion. negative: Cough, Dry, Shortness of Breath, Hemoptysis, Pleuritic Pain, Sputum, Wheezing - Medications/Allergies Allergies/Adverse Reactions: Allergies Allergy/AdvReac Type Severity Reaction Status Date / Time Penicillins Allergy Verified 03/01/18 12:59
--- NOTE | 2018-03-08 13:47 | DIS ---
DISCHARGE DIAGNOSES: 1. Severe acute on chronic systolic heart failure. 2. Ischemic cardiomyopathy. 3. Status post coronary artery bypass graft. 4. Status post biventricular implantable cardioverter defibrillator. 5. History of atrial tachycardia and a history of AV node ablation. 6. Hypertension. 7. Hypercholesterolemia. 8. Former smoker. 9. Hypothyroidism. DISCHARGE DISPOSITION: The patient is being transferred to [facility] in [place] for further evaluation by Dr. Subramanian. HOSPITAL COURSE: Ms. Nelson was admitted from the office on 03/01/2018. She was changed to high dose torsemide, but when she was seen was up 7 pounds over 2 weeks. She also had systolic pressure of less than 100 even with reduction of carvedilol. She was admitted. Carvedilol was held and she was placed on dobutamine and dopamine initially 2.5 and then both were increased to 5.0. She was given intravenous Lasix 80 mg b.i.d. and Aldactone 25 daily. She was hypokalemic initially; however, this eventually was replaced. She also, during the last few days was given metolazone 5 mg q.a.m., but continued to not significantly diurese. Her lungs were fairly clear; however, she had 2-3+ edema of her legs. I discussed with Dr. Subramanian and she agreed to take Ms. Nelson for further evaluation, although her long-term prognosis is poor. [facility]
--- NOTE | 2018-03-08 15:19 | PRG ---
DATE OF SERVICE: 03/08/2018 SUBJECTIVE: A 72-year-old female being seen for acute kidney injury. The patient denies any nausea, vomiting, or chest pain. PHYSICAL EXAMINATION: GENERAL: Patient is awake, alert. VITAL SIGNS: Afebrile, pulse 79, breathing 20, blood pressure 98/53. HEAD/NECK: Normocephalic. Atraumatic. EYES: EOMI. No deformity. EARS: Clear. No ulcers. NOSE: Intact. No lesions. MOUTH: Clear. No discharge. THROAT: Clear. No exudate. LUNGS: Clear. No crackles. CARDIAC: S1, S2. No rub. ABDOMEN: Benign. BS+. GENITALIA/RECTUM: Ballard absent. BACK/EXTREMITIES: Edema 0+ Ulcer- NEUROLOGICAL: Alert and motor intact. SKIN: Rash- Bruise- LYMPHATICS: Edema- Ulcer- LABORATORY DATA: Show hemoglobin 11, creatinine 2.0. ASSESSMENT AND RECOMMENDATIONS: 1. Acute kidney injury with chronic kidney disease stage 4, stable. 2. Hypertension, stable. 3. Anemia, stable. 4. Medications based on glomerular filtration rate are appropriate. I will try to keep the blood pr essure more than 100 systolic. No indication for dialysis.
--- NOTE | 2018-03-09 09:54 | ADD-DIS ---
ADDENDUM At the time of transfer, her creatinine was 2.0 and BUN was 73.
== END 2018-03-08 11:58 | disposition short-term general hospital (02) | DRG 291 ==
LOC: 2NO 11:37
PROVIDERS: ADMIT Internal Medicine Cardiovascular Disease; ATTEND Internal Medicine Cardiovascular Disease
DX: I13.0 Hypertensive heart and chronic kidney disease with heart failure and stage 1 through stage 4 chronic kidney disease, or unspecified chronic kidney disease (principal); I50.23 Acute on chronic systolic (congestive) heart failure; N18.4 Chronic kidney disease, stage 4 (severe); N17.9 Acute kidney failure, unspecified; E87.1 Hypo-osmolality and hyponatremia; I25.5 Ischemic cardiomyopathy; I25.10 Atherosclerotic heart disease of native coronary artery without angina pectoris; E87.6 Hypokalemia; R04.0 Epistaxis; E78.5 Hyperlipidemia, unspecified; E78.00 Pure hypercholesterolemia, unspecified; K21.9 Gastro-esophageal reflux disease without esophagitis; E03.9 Hypothyroidism, unspecified; Z87.891 Personal history of nicotine dependence; Z88.0 Allergy status to penicillin; Z79.82 Long term (current) use of aspirin; Z79.899 Other long term (current) drug therapy; Z95.1 Presence of aortocoronary bypass graft; Z95.810 Presence of automatic (implantable) cardiac defibrillator
CPT/HCPCS: 36415; 71046; 80048; 80053; 83880; 84443; 85025; 93798; A4216; J1250; J1265; J1650; J1940; J2405; J7050